=== PATIENT | female | born 1945 | race Caucasian/White ===

== ENCOUNTER → 2016-11-30 09:40 | Emergency (ER) | payer MEDICARE, BC ==
[2016-11-30 10:54] VITALS: BP 133/78
[2016-11-30 11:14] LABS: Hematocrit 43 % (35-47); Hemoglobin 13.9 g/dl (12.0-16.0); Mean Corpuscular HGB Conc 33 g/dl (31-36); Mean Corpuscular Hemoglobin 31 pg (27-31); Mean Corpuscular Volume 93 fL (80-97); Mean Platelet Volume 8 um3 (7.4-10.4); Red Blood Count 4.56 10^6/ul (4.0-5.4); Red Cell Distribution Width 14 % (10.5-15); White Blood Count 4.9 10^3/ul (3.5-10.8)
[2016-11-30 11:48] LABS: Albumin 4.2 g/dL (3.2-5.2); C Reactive Protein 2.59 mg/L (< 5.00); Calcium 9.4 mg/dL (8.6-10.3); EGFR African American 95.6 (>60); EGFR Non-African American 74.3 (>60); Globulin 2.1 g/dL (2-4); Potassium 4.2 mmol/L (3.5-5.0); Total Bilirubin 1.5 mg/dL (0.2-1.0); Total Protein 6.3 g/dL (6.4-8.9)
--- NOTE | 2016-11-30 12:13 | RAD ---
INDICATION: Abdominal pain with pulsating mass. COMPARISON: Comparison is made with a prior CT of the abdomen and pelvis from October 15, 2011. TECHNIQUE: Multiple real-time, color Doppler and Doppler tracings of the abdominal aorta were obtained. FINDINGS: The abdominal aorta is normal in caliber. The aorta measures a maximum of 2.8 cm in diameter. The aortic bifurcation is within normal limits. The proximal common iliac arteries are also visualized and are within normal limits. IMPRESSION: NEGATIVE EXAM.
[2016-11-30 14:14] LABS: Urine Bilirubin Negative (Negative); Urine Glucose Negative (Negative); Urine Nitrite Negative (Negative)
--- NOTE | 2016-11-30 19:01 | ED ---
Brittany Pulliam Thomas, scribed for Juan Bustillo MD on 11/30/16 at 1301 . Abdominal Pain/Female - HPI Summary HPI Summary: The pt is a 71 y/o F accompanied by and presenting to the ED c/o pulsating LUQ abd pain that began today at 02:00. She has been having L-sided abd pain with an ache quality for multiple weeks that is normally alleviated by eating. She additionally c/o L-sided flank pain, restlessness, insomnia, diarrhea, and paralyzed vocal cords (that began four months ago). In the last few weeks, she has intermittently had sharp pain that seems to spontaneously resolve. She denies CP. 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 Last week, she had a barium swallow at [facility]. Months ago, she had pains similar to her symptoms now. She is schedule for an appointment with Dr. Han tomorrow. In 2004, she had an autologous stem cell transplant for non-Hodgkin lymphoma. PMHx: lymphoma, melanoma, AAA, ventrical tachycardia. PSHx: defibrillator - History of Current Complaint Chief Complaint: EDAbdPain Stated Complaint: ABD PAIN Time Seen by Provider: 11/30/16 11:22 Hx Obtained From: Patient, Family/Medical Device Sales - in room Onset/Duration: Sudden Onset - 02:00 today, Lasting Hours - today 02:00, Still Present Timing: Constant Pain Intensity: 6 Pain Scale Used: 0-10 Numeric Location: Discrete At: LUQ Character: Other: - POS: pulsating Aggravating Factor(s): Nothing Alleviating Factor(s): Nothing Associated Signs and Symptoms: Positive: Other: - POS: L-side abd pain (chronic , ache in quality, onset multiple weeks, alleviated by eating), L-sided flank pain, restlessness, insomnia, diarrhea, paralyzed vocal cords (onset 4 months ago). Negative: Chest Pain Allergies/Adverse Reactions: Allergies Allergy/AdvReac Type Severity Reaction Status Date / Time Ciprofloxacin [From Cipro] Allergy Hives Verified 05/27/16 10:57 Gluten Meal Allergy Nausea And Verified 05/27/16 10:57 Vomiting Penicillins [PCN] Allergy Hives Verified 05/27/16 10:57 Vancomycin Allergy Hives Verified 05/27/16 10:57 enviromental Allergy Eyes Uncoded 10/07/16 08:49 Itchy/Swollen/Red/Watery PMH/Surg Hx/FS Hx/Imm Hx Previously Healthy: No Endocrine/Hematology History: Reports: Hx Blood Disorders - lymphoma, Hx Bone Marrow Disease - lymphoma, Hx Thyroid Disease, Other Endocrine/Hematological Disorders - Had stem cell transplant, 2004, for lymphoma Denies: Hx Anticoagulant Therapy, Hx Diabetes, Hx Sickle Cell Disease, Hx Anemia Cardiovascular History: Reports: Hx Aneurysm - small aortic aneurysm, Hx Angina , Hx Hypertension, Hx Syncope - 2011 Denies: Hx Coronary Artery Disease, Hx Hypercholesterolemia, Hx Myocardial Infarction, Hx Pacemaker/ICD, Hx Valvular Heart Disease Respiratory History: Denies: Hx Asthma, Hx Chronic Obstructive Pulmonary Disease (COPD) GI History: Reports: Hx Gastroesophageal Reflux Disease - Uses alternative methods to control it. 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 hysterectomy 1998. oophorectomy 2011. hernia 2011 twice. LOOP RECORDER-MODEL [id number] [employer] MR CONDITIONAL ICD Hx Anesthesia Reactions: No - Immunization History Date of Tetanus Vaccine: Unk Date of Influenza Vaccine: None Infectious Disease History: No Infectious Disease History: Denies: Traveled Outside the [place] in Last 30 Days - Family History Known Family History: Positive: Other - POS: AAA - Social History Alcohol Use: None Substance Use Type: Reports: None Smoking Status (MU): Never Smoked Tobacco Review of Systems Constitutional: Negative Negative: Fever Eyes: Negative Positive: Other - POS: paralyzed vocal cords (onset two months ago) Cardiovascular: Negative Negative: Chest Pain Respiratory: Negative Positive: Abdominal Pain - LUQ, 6/10, pulsating, onset 2:00 today, Diarrhea, Other - POS: chronic L-sided abd pain that began 4 weeks ago Positive: flank pain - L-sided Musculoskeletal: Negative Skin: Negative Neurological: Negative Positive: Other - POS: restlessness, insomnia All Other Systems Reviewed And Are Negative: Yes Physical Exam - Summary Physical Exam Summary: VITAL SIGNS: Reviewed. GENERAL: Patient is a well-developed and nourished female who is lying comfortable in the stretcher. ~Patient is not in any acute respiratory distress. HEAD AND FACE: Normocephalic and atraumatic. EYES: PERRLA, EOMI x 2, No injected conjunctiva. EARS: Hearing grossly intact. Ear canals and tympanic membranes are WNL. MOUTH: Oropharynx within normal limits. NECK: Supple, trachea is midline, no adenopathy, no JVD. CHEST: Symmetric, no tenderness at palpation LUNGS: Clear to auscultation bilaterally. No wheezing or crackles. CVS: RRR, S1 and S2 present, no murmurs or gallops appreciated. ABDOMEN: Slight CVA tenderness. LUQ tenderness. Soft. No signs of distention. Positive bowel sounds. No rebound no guarding, and no masses palpated. No abdominal bruit or pulsations. EXTREMITIES: FROM in all major joints, no edema, no cyanosis or clubbing. NEURO: Alert and oriented x 3. No acute neurological deficits. Speech is normal. SKIN: Dry and warm Triage Information Reviewed: Yes Vital Signs On Initial Exam: Initial Vitals Temp Pulse Resp BP Pulse Ox 97.9 F 59 17 133/94 96 11/30/16 09:41 11/30/16 09:41 11/30/16 09:41 11/30/16 09:41 11/30/16 09:41 Vital Signs Reviewed: Yes - Susana Coma Scale Coma Scale Total: 15 Diagnostics - Vital Signs Vital Signs Temp Pulse Resp BP Pulse Ox 11/30/16 10:53 98.1 F 65 16 133/78 95 11/30/16 09:41 97.9 F 59 17 133/94 96 - Laboratory Lab Results: Lab Results 11/30/16 11/30/16 11/30/16 Range/Units 11:05 11:05 11:05 WBC 4.9 (3.5-10.8) 10^3/ul RBC 4.56 (4.0-5.4) 10^6/ul Hgb 13.9 (12.0-16.0) g/dl Hct 43 (35-47) % MCV 93 (80-97) fL MCH 31 (27-31) pg MCHC 33 (31-36) g/dl RDW 14 (10.5-15) % Plt Count 163 (150-450) 10^3/ul MPV 8 (7.4-10.4) um3 Neut % (Auto) 60.6 (38-83) % Lymph % (Auto) 29.6 (25-47) % Garrett % (Auto) 7.3 (1-9) % Eos % (Auto) 1.1 (0-6) % Baso % (Auto) 1.4 (0-2) % Absolute Neuts (auto) 3.0 (1.5-7.7) 10^3/ul Absolute Lymphs (auto) 1.5 (1.0-4.8) 10^3/ul Absolute Monos (auto) 0.4 (0-0.8) 10^3/ul Absolute Eos (auto) 0.1 (0-0.6) 10^3/ul Absolute Basos (auto) 0.1 (0-0.2) 10^3/ul Absolute Nucleated RBC 0 10^3/ul Nucleated RBC % 0 Sodium 141 (133-145) mmol/L Potassium 4.2 (3.5-5.0) mmol/L Chloride 106 (101-111) mmol/L Carbon Dioxide 31 (22-32) mmol/L Anion Gap 4 (2-11) mmol/L BUN 20 (6-24) mg/dL Creatinine 0.77 (0.51-0.95) mg/dL Est GFR ( Amer) 95.6 (>60) Est GFR (Non-Af Amer) 74.3 (>60) BUN/Creatinine Ratio 26.0 H (8-20) Glucose 96 (70-100) mg/dL Lactic Acid 0.6 (0.5-2.0) mmol/L Calcium 9.4 (8.6-10.3) mg/dL Total Bilirubin 1.50 H (0.2-1.0) mg/dL AST 47 H (13-39) U/L ALT 55 H (7-52) U/L Alkaline Phosphatase 65 (34-104) U/L C-Reactive Protein 2.59 (< 5.00) mg/L Total Protein 6.3 L (6.4-8.9) g/dL Albumin 4.2 (3.2-5.2) g/dL Globulin 2.1 (2-4) g/dL Albumin/Globulin Ratio 2.0 (1-3) Lipase 32 (11.0-82.0) U/L Result Diagrams: 11/30/16 11:05 11/30/16 11:05 Lab Statement: Any lab studies that have been ordered have been reviewed, and results considered in the medical decision making process. - Additional Comments Diagnostic Additional Comments: Aorta US. Interpreted by radiologist. Impression: negative exam. Abdominal Pain Fem Course/Dx - Course Course Of Treatment: The pt is a 71 y/o F accompanied by and presenting to the ED c/o pulsating LUQ abd pain that began today at 02:00. She rates this pain 6/10. She has been having L-sided abd pain with an ache quality for multiple weeks that is normally alleviated by eating. She additionally c/o L- sided flank pain, restlessness, insomnia, diarrhea, and paralyzed vocal cords ( that began four months ago). In the last few weeks, she has intermittently had sharp pain that seems to spontaneously resolve. She denies CP. 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 Last week, she had a barium swallow at [facility]. Months ago, she had pains similar to her symptoms now. She is schedule for an appointment with Dr. Han tomorrow. In 2004, she had an autologous stem cell transplant for non-Hodgkin lymphoma. PMHx: lymphoma, melanoma, AAA, ventrical tachycardia, HTN. PSHx: defibrillator. AORTA US revealed a negative exam. Test results were within normal limits except increased LFTs, which the patient reports in the past couple blood tests came back slightly elevated. UA negative for UTI. US Aorta negative for an aneurysm. I did an US of the aorta because the patient was c/o a pulsing abd pain and the patient has a Hx of aneurysms. She did not want to do a CTA, seeing that the patient has had multiple CTAs the past months. Therefore, she reported that she is already exposed to a lot of radiation and she did not want to do a CTA. The patient was observed in the ED for a couple hours. Symptoms did not return. The patient is asymptomatic and did not see any pain. The patient says that her pain normally increases when she ambulates. The patient will be discharged. The patient has a follow-up appointment tomorrow with Dr. Patterson. Therefore, the patient will be instructed to return if she develops any further complaints. She is alert and oriented x3 and hemodynamically stable. - Diagnoses Differential Diagnosis: Positive: Constipation, Irritable Bowel Syndrome, Ovarian Cyst, Urinary Tract Infection Provider Diagnoses: Abdominal pain Discharge - Discharge Plan Condition: Stable Disposition: HOME Patient Education Materials: Abdominal Pain (ED) Referrals: Sherman Patterson MD [Primary Care Provider] - 3 Days The documentation as recorded by the Brittany estrada Thomas accurately reflects the service I personally performed and the decisions made by , Juan Bustillo MD.
== END | disposition home or self-care (01) ==
LOC: ED 09:40
DX: R10.12 Left upper quadrant pain (principal)
CPT/HCPCS: 36415; 76775; 80053; 81003; 83605; 83690; 85025; 86140; 99282

== ENCOUNTER 2021-04-16 02:36 | Observation (INO) ==
[2021-04-16] MEDS ORDERED: Lactated Ringers 1000 ml BAG 1,000 ML IV ONE (02:41)
[2021-04-16 03:13] LABS: ABS Eosinophils 0.1 10^3/ul (0-0.6); ABS Lymphocytes 1.4 10^3/ul (1.0-4.8); ABS Monocytes 0.4 10^3/ul (0-0.8); ABS Neutrophils 2.7 10^3/ul (1.5-7.7); Eosinophil % 2.3 %; Hematocrit 37 % (35-47); Hemoglobin 12.2 g/dL (12.0-16.0); Lymphocyte % 29.8 %; Mean Corpuscular HGB Conc 33 g/dL (31-36); Mean Corpuscular Hemoglobin 32 pg (27-31); Mean Corpuscular Volume 95 fL (80-97); Mean Platelet Volume 8.1 fL (7.4-10.4); Platelet Count 170 10^3/uL (150-450); Red Blood Count 3.87 10^6 /uL (3.70-4.87); Red Cell Distribution Width 14 % (10-15); White Blood Count 4.6 10^3/uL (3.5-10.8)
[2021-04-16 03:22] LABS: Activated Partial Thrombo Time 27.1 seconds (26.0-38.0); INR 1.09 (0.86-1.15)
[2021-04-16 03:34] LABS: Albumin/Globulin Ratio 1.7 (1-3); C Reactive Protein 1.1 mg/L (<8.01); Calcium 9.1 mg/dL (8.6-10.3); Globulin 2.3 g/dL (2-4); Potassium 3.3 mmol/L (3.5-5.0); Total Bilirubin 0.9 mg/dL (0.2-1.0); Total Protein 6.3 g/dL (6.4-8.9); eGFR CKD-EPI 77.3 (>60)
[2021-04-16 03:36] LABS: Troponin I 0.01 ng/mL (<0.03)
[2021-04-16] MEDS ORDERED: Potassium Chlor 20 meq TAB.ER PO ONE (03:40)
[2021-04-16] MEDS ORDERED: Iodixanol (CONTRAST) 320 MG/ML 100 ML SDV IV ONE (03:55)
[2021-04-16 04:29] LABS: Urine Appearance Clear; Urine Bilirubin Negative (Negative); Urine Blood 2+ (Negative); Urine Color Straw; Urine Glucose Negative (Negative); Urine Ketones 1+ (Negative); Urine Nitrite Negative (Negative); Urine Protein Negative (Negative); Urine Urobilinogen Negative (Negative)
[2021-04-16 04:31] LABS: Urine Bacteria Absent (Absent); Urine Red Blood Cell 2+(6-10/hpf) (Absent); Urine Squamous Epithelial Cell Present (Absent); Urine White Blood Cell Trace(0-5/hpf) (Absent)
[2021-04-16 06:47] LABS: Troponin I 0.04 ng/mL (<0.03)
[2021-04-16 06:52] LABS: Rapid COVID-19 Molecular Undetected (Undetected)
[2021-04-16] MEDS ORDERED: D5LR 1000 ml BAG 1,000 ML IV SCH (09:00)
[2021-04-16] MEDS ORDERED: Enoxaparin 60 MG/0.6 ML SYR SUBCUT SCH (09:00)
[2021-04-16] MEDS: Aspirin EC 81 mg TAB.EC (enteric coated) PO SCH (10:21)
[2021-04-16] MEDS ORDERED: NS 0.9% 250 ml 250 ML IV ONE (11:43)
[2021-04-16 13:23] LABS: Troponin I 0.03 ng/mL (<0.03)
[2021-04-16] MEDS ORDERED: Midazolam 5 mg/5 ml VIAL 1 mg/ml 5 ml VIAL (5 mg) ONE (14:51)
[2021-04-16] MEDS ORDERED: fentaNYL 100 mcg/2 ml 50 MCG/ML VIAL ONE (14:51)
[2021-04-17 06:11] LABS: ABS Eosinophils 0.1 10^3/ul (0-0.6); ABS Lymphocytes 1.3 10^3/ul (1.0-4.8); ABS Monocytes 0.4 10^3/ul (0-0.8); ABS Neutrophils 2.4 10^3/ul (1.5-7.7); Eosinophil % 2.2 %; Hematocrit 33 % (35-47); Hemoglobin 11.4 g/dL (12.0-16.0); Lymphocyte % 31.4 %; Mean Corpuscular HGB Conc 34 g/dL (31-36); Mean Corpuscular Hemoglobin 32 pg (27-31); Mean Corpuscular Volume 94 fL (80-97); Mean Platelet Volume 7.6 fL (7.4-10.4); Platelet Count 158 10^3/uL (150-450); Red Blood Count 3.54 10^6 /uL (3.70-4.87); Red Cell Distribution Width 14 % (10-15); White Blood Count 4.2 10^3/uL (3.5-10.8)
[2021-04-17 06:28] LABS: Calcium 8.8 mg/dL (8.6-10.3); Potassium 3.9 mmol/L (3.5-5.0); eGFR CKD-EPI 84.8 (>60)
[2021-04-17] MEDS: Aspirin EC 81 mg TAB.EC (enteric coated) PO SCH (09:05)
[2021-04-17 11:33] VITALS: BP 134/71
== END 2021-04-17 13:15 | disposition home or self-care (01) ==
LOC: ED 02:36 → EDHOLD 02:36 → MEDTELE 11:12
PROVIDERS: ADMIT Internal Medicine; ATTEND Internal Medicine